=== PATIENT | female | born 1945 | race Caucasian/White ===

== ENCOUNTER 2018-09-29 10:00 | Outpatient (CLI) | payer MEDICARE ==
[2018-09-29 10:36] LABS: Estimated GFR-MDRD - POC Greater than 90
--- NOTE | 2018-09-29 13:57 | MRI ---
MRI OF THE ABDOMEN WITHOUT AND WITH CONTRAST: Comparison: Abdominal ultrasound 09-14-18 History: Elevated LFTs and enlarged common bile duct seen on prior ultrasound. Technique: Multiplanar, multisequence MR images were obtained of the abdomen without and with IV cont rast. MRCP images were performed with 3D rotational reformats. FINDINGS: There is loss of signal of the liver on [id number] images consistent with diffuse fatty infiltratio n of liver. The gallbladder, kidneys, adrenal glands, spleen, and pancreas are unremarkable. No abnor mal enhancement is seen on this examination. MRCP images show no significant enlargement of the commo n bile duct or intrahepatic biliary tree. The pancreatic duct is normal in caliber. Common bile duct measures 5 mm in greatest dimension. No abdominal adenopathy is seen. There is a moderate hiatal hernia. Sclerotic curvature and degenerat swetha changes are seen in the spine. IMPRESSION: 1. No biliary abnormality identified. 2. Mild fatty infiltration of the liver. 3. Hiatal hernia. POS: [facility]
== END 2018-09-29 10:01 | disposition home or self-care (01) ==
LOC: MRI 10:00 → SCSMRI 10:01
PROVIDERS: ATTEND Internal Medicine
DX: R93.89 Abnormal findings on diagnostic imaging of other specified body structures (principal); K76.0 Fatty (change of) liver, not elsewhere classified; K44.9 Diaphragmatic hernia without obstruction or gangrene
CPT/HCPCS: 74183; 82565